=== PATIENT | female | born 1945 | race Caucasian/White ===

== ENCOUNTER 2025-02-17 15:47 | Emergency (ER) | payer MEDICARE, SELFPAY ==
--- OUTSIDE RECORDS SUMMARY | 2024-02-14 09:15 | XMS_ITS ---
Author Organization [facility] Office Address [address] [place] [address] Care Team Providers Care Sap Plant Maintenance Consultant Name Role Phone Chris Agustin Unavailable [phone] Medications Medication SIG (Take, Route, Frequency, Duration) Notes Start Date End Date Status Ergocalciferol 1.25 MG (30980 UT) 1 capsule Orally every other week; Duration: 90 day(s) Active Losartan Potassium 25 MG TAKE 1 TABLET B Y MOUTH EVERY DAY FOR 90 DAYS; Duration: 90 Active Calcitriol 0.25 MCG TAKE 1 CAPSULE BY MO UT EVERY DAY; Duration: 90 Active Encounters Encounter Location Date Provider Diagnosis [place] [facility] [address] [facility] 15 [place] [address] 02/14/2024 Chris Agustin Chronic kidney disea se, stage 3 unspecified N18.30 ; Essential hypertension I10 ; Renal osteodystrophy N25.0 ; Heart failure, unspecified I50.9 ; Proteinuria, unspecified R80.9 and Secondary hyperparathyroidism, not elsewhere classified E21.1 Assessments Encounter Date Diagnosis (ICD Code) Assessment Notes Treatment Notes Treatment Clinical Notes Section Notes 02/14/2024 Chronic kidney disease, stage 3 unspecified (ICD-10 - N18.30) 02/14/2024 Essential hypertension (ICD-10 - I10) 02/14/2024 Renal osteodystrophy (ICD-10 - N25.0) 02/14/2024 Heart failure, unspecified (ICD-10 - I50.9) 02/14/2024 Proteinuria, unspecified (ICD-10 - R80.9) 02/14/2024 Secondary hyperparathyroidism , not elsewhere classified (ICD-10 - E21.1) Plan Of Treatment Next Appt Details Provider Name:Chris Agustin , 03/05/2025 10:30:00 AM, 2043 [facility], [address], [place], [address], Progress Notes * DB SOTELOB:1945 ( 79 yo F)Acc No.[id number]:02/14/2024 Progress Notes Patient: KENNA EAGLE Provider: Mei MULLER MD, Jannie.Nelly.Celio.P, F.A.S.N. :1945 A ge:78 Y S ex:Female Date:02/14/2024 Address:[address] [place] [address] Subjective: * Chief Complaints: * * Medical History: * Medications: T aking Ergocalciferol 1.25 MG (95425 UT) Capsule 1 capsule Orally every other week , Taking Losartan Potassium 25 MG Tablet TAKE 1 TABLET BY MOUTH EVERY DAY FOR 90 DAYS , Taking Calcitriol 0.25 MCG Capsule TAKE 1 CAPSULE BY MOUTH EVERY DAY Objective: * Vitals: Assessment: * Assessment: 1. C hronic kidney disease, stage 3 unspecified - N18.30 2 . E ssential hypertension - I10 3 . R enal osteodystrophy - N25.0 4 . H eart failure, unspecified - I50.9 5 . P roteinuria, unspecified - R80.9 6. S econdary hyperparathyroidism, not elsewhere classified - E21.1 Plan: * Treatment: * Billing Information: * Visit Code: 76617 Office Visit, Est Pt., Level 4. * Procedure Codes: * Electronic signature of Kwan Agustin MD on 02/17/2025 at 03:50 PM CDT Sign off status: Pending * Provider: Mei MULLER MD, Jannie.Nelly.C.P, F.A.S.N. Date: 02/14/2024 Generated for Printing/Faxing/eTransmitting on: 02/17/2025 03:50 PM CDT
--- OUTSIDE RECORDS SUMMARY | 2024-06-28 11:00 | XMS_ITS ---
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 Encounters Encounter Location Date Provider Diagnosis [facility] [address] [place] [address] 06/28/2024 Chris Agustin Chronic kidney disea se, stage 3b N18.32 ; Proteinuria, unspecified R80.9 ; Secondary hyperparathyroidism of renal origin N25.81 ; Essential hypertension I10 ; Heart failure, unspecified I50.9 and 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 Assessments Encounter Date Diagnosis (ICD Code) Assessment Notes Treatment Notes Treatment Clinical Notes Section Notes 06/28/2024 Chronic kidney disea se, stage 3b (ICD-10 - N18.32) 06/28/2024 Proteinuria, unspecified (ICD-10 - R80.9) 06/28/2024 Secondary hyperparathyroidism of renal origin (ICD-10 - N25.81) 06/28/2024 Essential hypertensi on (ICD-10 - I10) 06/28/2024 Heart failure, unspecified (ICD-10 - I50.9) 06/28/2024 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 :1945 A ge:78 Y S ex:Female Date:06/28/2024 Address:[address] [place] [address] Subjective: * Chief Complaints: Objective: Assessment: * Assessment: 1. C hronic kidney disease, stage 3b - N18.32 (Primary) 2 . P roteinuria, unspecified - R80.9 3 . S econdary hyperparathyroidism of renal origin - N25.81? 4. E ssential hypertension - I10 5 . H eart failure, unspecified - I50.9 6 . 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 * Procedure Codes: * Electronic signature of wKan Agustin MD on 02/17/2025 at 03:50 PM CDT Sign off status: Pending * Provider: Mei MULLER MD, F.Nelly.C.P, F.A.S.N. Date: 0 06/28/2024 Generated for Printing/Faxing/eTransmitting on: 0 02/17/2025 03:50 PM CDT
--- OUTSIDE RECORDS SUMMARY | 2024-08-28 16:15 | XMS_ITS ---
Author Organization [facility] Office Address [address] [place] [address] Care Team Providers Care Division Manager Name Role Phone Chris Agustin Unavailable [phone] Encounters Encounter Location Date Provider Diagnosis [place] [facility] 2043 [facility] 15 [place] [address] 08/28/2024 Chris Agustin Plan Of Treatment Next Appt Details Provider Name:Chris Agustin , 03/05/2025 10:30:00 AM, 2043 [facility] 15, [place], [address], Progress Notes * ADRIENNE SOTELOSHAQB:1945 ( 79 yo F)Acc No.[id number]:08/28/2024 Patient: KENNA EAGLE Provider: Mei MULLER MD, Jannie.Nelly.C.P, F.A.S.N. :1945 A ge:78 Y S ex:Female Date:08/28/2024 Address:[address] [place] [address] Subjective: * Chief Complaints: Objective: Assessment: Plan: * Billing Information: * Visit Code: * Procedure Codes: * Electronic signature of Kwan Agustin MD on 02/17/2025 at 03:49 PM CDT Sign off status: Pending * Provider: Mei MULLER MD, Jannie.Nelly.C.P, F.A.S.N. Date: 08/28/2024 Generated for Printing/Faxing/eTransmitting on: 02/17/2025 03:49 PM CDT
--- OUTSIDE RECORDS SUMMARY | 2024-10-23 09:30 | XMS_ITS ---
Author Organization [facility] Address [address] [place] [address] Care Team Providers Care Medicaid Nurse Name Role Phone AgustinChris Unavailable [phone] Medications Medication SIG (Take, Route, Frequency, Duration) Notes Start Date End Date Status Calcitriol 0.25 MCG TAKE 1 CAPSULE BY MO UTH EVERY DAY; Duration: 90 Active Losartan Potassium 25 MG TAKE 1 TABLET B Y MOUTH EVERY DAY FOR 90 DAYS; Duration: 90 Active Ergocalciferol 1.25 MG (04404 UT) 1 capsule Orally every other week; Duration: 90 day(s) Active Problems Problem Type SNOMED Code ICD Code Onset Dates Problem Status W/U Status Risk Notes Problem Sick sinus syndrome (93352699) Sick sinus syndrome (I49.5) Active confirmed Encounters Encounter Location Date Provider Diagnosis [place] [facility] 2043 [facility] 15 [place] [address] 10/23/2024 Chris Agustin Chronic kidney disea se, stage 3b N18.32 ; Heart failure, unspecified I50.9 ; Proteinuria, unspecified R80.9 ; Renal osteodystrophy N25.0 ; Essential hypertension I10 ; Secondary hyperparathyroidism of renal origin N25.81 ; 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 and Sick sinus syndrome I49.5 Assessments Encounter Date Diagnosis (ICD Code) Assessment Notes Treatment Notes Treatment Clinical Notes Section Notes 10/23/2024 Chronic kidney disea se, stage 3b (ICD-10 - N18.32) 10/23/2024 Heart failure, unspecified (ICD-10 - I50.9) 10/23/2024 Proteinuria, unspecified (ICD-10 - R80.9) 10/23/2024 Renal osteodystrophy (ICD-10 - N25.0) 10/23/2024 Essential hypertensi on (ICD-10 - I10) 10/23/2024 Secondary hyperparathyroidism of renal origin (ICD-10 - N25.81) 10/23/2024 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 :1945 A ge:79 Y S ex:Female Date:10/23/2024 Address:[address] [place] [address] Subjective: * Chief Complaints: * * Medical History: * Medications: T aking Ergocalciferol 1.25 MG (93365 UT) Capsule 1 capsule Orally every other week , Taking Losartan Potassium 25 MG Tablet TAKE 1 TABLET BY MOUTH EVERY DAY FOR 90 DAYS , Taking Calcitriol 0.25 MCG Capsule TAKE 1 CAPSULE BY MOUTH EVERY DAY Objective: * Vitals: Assessment: * Assessment: 1. C hronic kidney disease, stage 3b - N18.32 (Primary) 2 . H eart failure, unspecified - I50.9 3 . P roteinuria, unspecified - R80.9 4 .?Renal osteodystrophy - N25.0 5 . E ssential hypertension - I10 6. S econdary hyperparathyroidism of renal origin - N25.81 7 . 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 S ick sinus syndrome - I49.5 Plan: * Treatment: * Billing Information: * Visit Code: 98589 Office Visit, Est Pt., Level 4. * Procedure Codes: * Electronic signature of Kwan Agustin MD on 02/17/2025 at 03:50 PM CDT Sign off status: Pending * Provider: Mei MULLER MD, F.A.C.P, F.A.S.N. Date: 0 10/23/2024 Generated for Printing/Faxing/eTransmitting on: 0 02/17/2025 03:50 PM CDT
--- OUTSIDE RECORDS SUMMARY | 2024-12-18 09:45 | XMS_ITS ---
Author Organization [facility] Address 1400 [facility] 61 [facility] [address] [place] [address] Care Team Providers Care Drawing Press Operator Name Role Phone Chris Agustin Unavailable [phone] Encounters Encounter Location Date Provider Diagnosis [place] [facility] 2043 [facility] [address] [place] [address] 12/18/2024 Chris Agustin Heart failure, unspe cified I50.9 ; Proteinuria, unspecified R80.9 ; Renal osteodystrophy N25.0 ; Essential hypertension I10 ; Secondary hyperparathyroidism of renal origin N25.81 ; 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 and Sick sinus syndrome I49.5 Assessments Encounter Date Diagnosis (ICD Code) Assessment Notes Treatment Notes Treatment Clinical Notes Section Notes 12/18/2024 Heart failure, unspecified (ICD-10 - I50.9) 12/18/2024 Proteinuria, unspecified (ICD-10 - R80.9) 12/18/2024 Renal osteodystrophy (ICD-10 - N25.0) 12/18/2024 Essential hypertensi on (ICD-10 - I10) 12/18/2024 Secondary hyperparathyroidism of renal origin (ICD-10 - N25.81) 12/18/2024 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 :1945 A ge:79 Y S ex:Female Date:12/18/2024 Address:[address] [place] [address] Subjective: * Chief Complaints: * * Medical History: Objective: * Vitals: Assessment: * Assessment: 1. H eart failure, unspecified - I50.9 (Primary) 2 . P roteinuria, unspecified - R80.9 3 . R enal osteodystrophy - N25.0 4 . E ssential hypertension - I10 5 . S econdary hyperparathyroidism of renal origin - N25.81 6. A trophy of kidney (terminal) - N26.1 7 . S ick sinus syndrome - I49.5 Plan: * Treatment: * Billing Information: * Visit Code: 96289 Office Visit, Est Pt., Level 4. * Procedure Codes: * Electronic signature of Kwan Agustin MD on 02/17/2025 at 03:49 PM CDT Sign off status: Pending * Provider: Mei MULLER MD, F.Nelly.Celio.P, F.A.S.N. Date: 12/18/2024 Generated for Printing/Faxing/eTransmitting on: 02/17/2025 03:49 PM CDT
--- NOTE | ~2025-02-17 | XR_ITS ---
EXAMINATION: XR shoulder RT min 2V DATE: 02/17/2025 17:23 INDICATION: Right shoulder pain TECHNIQUE: 4 images of the right shoulder were obtained. COMPARISON: None FINDINGS: No displaced fracture. No dislocation. Moderate degenerative change in the right acromioclavicular joint. Moderate narrowing of the right glenohumeral joint. Hill-Sachs deformity in the right humeral head of indeterminate age. Bones appear osteopenic. IMPRESSION: 1. No displaced fracture. 2. Hill-Sachs deformity in the right humeral head of indeterminate age. 3. Moderate degenerative change in the right acromioclavicular joint and right glenohumeral joint. If symptoms persist or worsen, consider a short-term follow-up study or additional imaging for further assessment. Reviewed, dictated and finalized at location Q. IMPRESSION: 1. No displaced fracture. 2. Hill-Sachs deformity in the right humeral head of indeterminate age. 3. Moderate degenerative change in the right acromioclavicular joint and right glenohumeral joint. If symptoms persist or worsen, consider a short-term follow-up study or additio nal imaging for further assessment.
--- NOTE | ~2025-02-17 | XR_ITS ---
[id number] INDICATION: Left-sided neck pain TECHNIQUE: 4 views of the cervical spine. FINDINGS: Bones appear osteopenic. Predental space is within normal limits. No prevertebral soft tissue swelling. Moderate to severe intervertebral disc space narrowing at the C5-C6 and C6-C7 and C7-T1 levels with anterior osteophytes. Extensive degenerative change in the mid and lower cervical facet joints and uncovertebral joints. Lateral dental intervals were not visualized. IMPRESSION: 1. No compression fracture identified in the cervical spine. 2. Moderate to severe intervertebral disc space narrowing at the C5-C6 and C6- C7 and C7-T1 levels with anterior osteophytes. 3. Extensive degenerative change in the mid and lower cervical facet joints and uncovertebral joints. 4. Lateral dental intervals were not visualized. If symptoms persist or worsen, a CT or MRI of the cervical spine is recommended for further assessment. Reviewed, dictated and finalized at location Q. IMPRESSION: 1. No compression fracture identified in the cervical spine. 2. Moderate to severe intervertebral disc space narrowing at the C5-C6 and C6- C7 and C7-T1 levels with anterior osteophytes. 3. Extensive degenerative change in the mid and lower cervical facet joints an d uncovertebral joints. 4. Lateral dental intervals were not visualized. If symptoms persist or worsen, a CT or MRI of the cervical spine is recommended for further assessment.
--- OUTSIDE RECORDS SUMMARY | 2025-02-17 15:50 | XMS_ITS | Patient Health Record ---
Author Organization [facility] Address 1400 [facility] 61 [facility] [address] [place] [address] Care Team Providers Care Director Of Digital Platforms Name Role Phone Chris Agustin Unavailable [phone] Reason For Referral No Information Medications Medication SIG (Take, Route, Frequency, Duration) Notes Start Date End Date Status Calcitriol 0.25 MCG TAKE 1 CAPSULE BY MO UTH EVERY DAY Orally Once a day; Duration: 90 days Active Losartan Potassium 25 MG TAKE 1 TABLET B Y MOUTH EVERY DAY FOR 90 DAYS; Duration: 90 Active Ergocalciferol 1.25 MG (10689 UT) 1 capsule Orally every other week; Duration: 90 day(s) Active Problems Problem Type SNOMED Code ICD Code Onset Dates Problem Status W/U Status Risk Notes Problem Sick sinus syndrome (19940027) Sick sinus syndrome (I49.5) Active confirmed Problem Heart failure (59765687) Heart failure, unspecified (I50.9) Active confirmed Problem Renal osteodystrophy (08124788) Renal osteodystrophy (N25.0) Active confirmed Problem Secondary hyperparathyroidism of renal origin (42103608) Secondary hyperparathyroidism of renal origin (N25.81) Active confirmed Problem Nephrosclerosis (42213170) 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 Problem Proteinuria (44066354) Proteinuria, unspecified (R80.9) Active confirmed Problem Essential hypertension (65080224) Essential hypertension (I10) Active confirmed Encounters Encounter Location Date Provider Diagnosis [facility] [address] [place] [address] 06/28/2024 Chris Agustin Chronic kidney disea se, stage 3b N18.32 ; Proteinuria, unspecified R80.9 ; Secondary hyperparathyroidism of renal origin N25.81 ; Essential hypertension I10 ; Heart failure, unspecified I50.9 and 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 [place] [facility] [address] [address] 10/23/2024 Chris Agustin Chronic kidney disea se, stage 3b N18.32 ; Heart failure, unspecified I50.9 ; Proteinuria, unspecified R80.9 ; Renal osteodystrophy N25.0 ; Essential hypertension I10 ; Secondary hyperparathyroidism of renal origin N25.81 ; 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 and Sick sinus syndrome I49.5 [place] [facility] 2043 [place] [address] 12/18/2024 Chris Agustin Heart failure, unspe cified I50.9 ; Proteinuria, unspecified R80.9 ; Renal osteodystrophy N25.0 ; Essential hypertension I10 ; Secondary hyperparathyroidism of renal origin N25.81 ; 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 and Sick sinus syndrome I49.5 [place] [facility] [address] [address] 04/24/2024 Chris Agustin [place] [facility] [address] [address] 12/18/2024 Chris Agustin Assessments Encounter Date Diagnosis (ICD Code) Assessment Notes Treatment Notes Treatment Clinical Notes Section Notes 06/28/2024 Proteinuria, unspecified (ICD-10 - R80.9) 06/28/2024 Chronic kidney disea se, stage 3b (ICD-10 - N18.32) 10/23/2024 Chronic kidney disea se, stage 3b (ICD-10 - N18.32) 12/18/2024 Heart failure, unspecified (ICD-10 - I50.9) 12/18/2024 Proteinuria, unspecified (ICD-10 - R80.9) 10/23/2024 Heart failure, unspecified (ICD-10 - I50.9) 06/28/2024 Secondary hyperparathyroidism of renal origin (ICD-10 - N25.81) 06/28/2024 Essential hypertensi on (ICD-10 - I10) 12/18/2024 Renal osteodystrophy (ICD-10 - N25.0) 10/23/2024 Proteinuria, unspecified (ICD-10 - R80.9) 12/18/2024 Essential hypertensi on (ICD-10 - I10) 10/23/2024 Renal osteodystrophy (ICD-10 - N25.0) 06/28/2024 Heart failure, unspecified (ICD-10 - I50.9) 06/28/2024 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 - 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.1) 10/23/2024 Essential hypertensi on (ICD-10 - I10) 12/18/2024 Secondary hyperparathyroidism of renal origin (ICD-10 - N25.81) 12/18/2024 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
[2025-02-17 15:59] VITALS: BP 153/76; PULSE 80; RESP 18; TEMP 36.9; O2SAT 99
--- NOTE | 2025-02-17 17:02 | ED.UPPEXIN ---
HPI - Extremity Injury (Upper) General Chief Complaint: Extremity Injury, Upper <Talia Padilla PA-C - Last Filed: 02/17/25 17:13> Stated Complaint: Unable to raise right arm-no known injury <Talia Padilla PA-C - Last Filed: 02/17/25 17:13> Time Seen by Provider: 02/17/25 17:02 <Talia Padilla PA-C - Last Filed: 02/17/25 17:13> Focused HPI: Patient is a 79 year old female who presents the ED with report of right shoulder pain. Patient reports she has been having pain for the past couple of weeks. Pain worse with any type of movement. States she can hardly lift her arm due to the pain. Denies any fall or injury. Has not been taking anything for pain. States the pain will radiate slightly into her right-sided neck at times. Denies numbness/tingling, weakness. GENERAL: Well-appearing, well-nourished, and in no acute distress. HEAD: Normocephalic, atraumatic. CHEST: Clear to auscultation. ?No respiratory distress. HEART: Regular rate and rhythm.? MSK: TTP over R anterior shoulder joint/proximal humerus. Limited ROM d/t pain. Sensation intact throughout RUE. Strong medical clinic manager strength. NEURO: ?Alert and oriented x3. Patient screened in triage and initial orders placed.? ?Additional care and disposition to be based upon?diagnostic testing and treatment. <Talia Padilla PA-C - Last Filed: 02/17/25 17:13> Source: patient <Talia Padilla PA-C - Last Filed: 02/17/25 17:13> Mode of arrival: ambulatory <Talia Padilla PA-C - Last Filed: 02/17/25 17:13> Limitations: no limitations <Talia Padilla PA-C - Last Filed: 02/17/25 17:13> History of Present Illness HPI narrative: per HPI <Mercedes Davila MD - Last Filed: 02/18/25 04:13> Related Data Allergies/Adverse Reactions: Allergies Allergy/AdvReac Type Severity Reaction Status Date / Time No Known Allergies Allergy Verified 02/17/25 15:49 <Talia Padilla PA-C - Last Filed: 02/17/25 17:13> Review of Systems Review of Systems: All systems reviewed & are unremarkable except as noted in HPI and below <Mercedes Davila MD - Last Filed: 02/18/25 04:13> [facility] Family History Family History: Family History (Updated 05/03/12 @ 10:34 by DOCTOR UNKNOWN) Other Asthma Family history of chronic obstructive pulmonary disease <Talia Padilla PA-C - Last Filed: 02/17/25 17:13> Social History Social History: Social History Smoking status: Never smoker Alcohol intake: never <ALISON Avila Last Filed: 02/17/25 17:13> Exam Narrative: EXAMINATION OF ORGAN SYSTEMS/BODY AREAS: Constitutional: Vital signs per nursing GENERAL:[No acute distress, non-toxic appearing.] HEAD: Normal with no signs of head trauma. EYES: EOMI, conjunctiva normal ENT: Hearing grossly intact LUNGS: Nonlabored breathing. HEART: [Regular rate and rhythm] ABD: [Soft], [nontender to palpation] EXT: Some pain with movement of the right shoulder SKIN: [No rashes or lesions.] NEURO: [Alert and oriented x 3. No gross focal sensory or strength deficits.] PSYCH: Normal affect <Mercedes Davila MD - Last Filed: 02/18/25 04:13> Course Vital Signs Vital signs: Vital Signs Temperature 98.5 F 02/17/25 15:59 Pulse Rate 80 02/17/25 15:59 Respiratory Rate 18 02/17/25 15:59 Blood Pressure 153/76 H 02/17/25 15:59 Pulse Oximetry 99 02/17/25 15:59 Oxygen Delivery Room Air 02/17/25 15:59 Temperature 98.5 F 02/17/25 15:59 Pulse Rate 80 02/17/25 17:45 Respiratory Rate 18 02/17/25 17:45 Blood Pressure 138/77 02/17/25 17:45 Pulse Oximetry 96 02/17/25 17:45 Oxygen Delivery Room Air 02/17/25 17:45 <Talia Padilla PA-C - Last Filed: 02/17/25 17:13> Vital Signs Temperature 98.5 F 02/17/25 15:59 Pulse Rate 80 02/17/25 15:59 Respiratory Rate 18 02/17/25 15:59 Blood Pressure 153/76 H 02/17/25 15:59 Pulse Oximetry 99 02/17/25 15:59 Oxygen Delivery Room Air 02/17/25 15:59 Temperature 98.5 F 02/17/25 15:59 Pulse Rate 80 02/17/25 17:45 Respiratory Rate 18 02/17/25 17:45 Blood Pressure 138/77 02/17/25 17:45 Pulse Oximetry 96 02/17/25 17:45 Oxygen Delivery Room Air 02/17/25 17:45 <Mercedes Davila MD - Last Filed: 02/18/25 04:13> MDM - Extremity Injury (Upper) MDM Narrative Medical decision making narrative: MSE by [facility] in triage. <Talia Padilla PA-C - Last Filed: 02/17/25 17:13> MSE by [facility] in triage. // Patient presents with pain in her right shoulder, has been ongoing for while, does have history of arthritis. X-ray of shoulder and neck show possible Hill-Sachs deformity, and arthritis, discussed this with patient, she does remember now that she may have had a dislocation of that shoulder in the past, I suspect this partly exacerbation today, she already feels much better after the Flexeril and is now able to move her arm more easily. I will trial a course of steroids and have her follow-up with orthopedist. Patient agreeable to plan. <Mercedes Davila MD - Last Filed: 02/18/25 04:13> Discharge Plan Discharge Clinical Impression: Acute shoulder pain <Talia Padilla PA-C - Last Filed: 02/17/25 17:13> Patient Disposition: Home <ALISON Avila Last Filed: 02/17/25 17:13> Condition: Stable <ALISON Avila Last Filed: 02/17/25 17:13> Instructions: Shoulder Pain (ED) <ALISON Avila Last Filed: 02/17/25 17:13> Additional Instructions: Please follow-up with orthopedic surgeon, try the medications as prescribed, come back to the ER for any further issues. <Talia Padilla PA-C - Last Filed: 02/17/25 17:13> Patient Language: Turkmen <ALISON Avila Last Filed: 02/17/25 17:13> Prescriptions: New prednisone 20 mg tablet 40 mg PO DAILY 4 Days Qty: 8 0RF cyclobenzaprine 5 mg tablet 5 mg PO TID PRN (Reason: muscle spasm) Qty: 30 0RF <Talia Padilla PA-C - Last Filed: 02/17/25 17:13> Follow-up/Referrals: Maximus Jackson M.D. [Primary Care Provider, Anesthesiology] Alon Sood MD [Physician, Orthopedics] - 2 Days <ALISON Avila Last Filed: 02/17/25 17:13>
[2025-02-17 17:45] VITALS: BP 138/77; PULSE 80; RESP 18; O2SAT 96
[2025-02-17] MEDS: CYCLOBENZAPRINE HCL 5 MG TABLET PO (17:46)
== END 2025-02-17 19:41 | disposition home or self-care (01) ==
LOC: ANHED 19:34
PROVIDERS: Emergency Provider Emergency Medicine; PCP Anesthesiology
DX: M25.511 Pain in right shoulder (principal)
CPT/HCPCS: 72040; 73030; 99284; A9270; J7512